=== PATIENT | female | born 1995 | race African-American/Black ===

== ENCOUNTER 2016-10-04 14:37 | Emergency (ER) | payer OTHER ==
--- NOTE | 2016-10-04 16:08 | PROVIDER DOCUMENTATION ---
HPI-Abdominal Pain/GI Problem - General Source: patient - History of Present Illness-ABD Nature of Presenting Problems: 21 year old female presents to the ER with complaint of N/V/D. States she ate chicken last night, took a two hour nap and work up with vomiting and diarrhea. Pt denies fever. Abdominal Pain Onset Location: reports: generalized abdomen Pain Radiation: reports: no radiation Onset/Duration: reports: last night Timing: reports: still present Associated Symptoms: reports: diarrhea, nausea, vomiting <Barbra Ayala - Last Filed: 10/04/16 16:04> - General Source: patient <Yobani Culver - Last Filed: 10/04/16 20:21> - General Chief Complaint: N/V/D Stated Complaint: THROWING UP Time Seen by Provider: 10/04/16 16:04 Allergies/Adverse Reactions: Patient Allergies Allergy/AdvReac Type Severity Reaction Status Date / Time latex Allergy RASH Verified 02/16/16 06:52 Home Medications: Home Medication List Medication Instructions Recorded Confirmed Last Taken Type Buspirone HCl [Buspar] 5 mg PO BID 04/23/16 04/23/16 Unknown History Dicyclomine HCl [Bentyl] 20 mg PO TID #30 tablet 04/23/16 Unknown Rx Ondansetron Odt [Zofran 8Mg Odt] 8 mg PO Q8H PRN PRN #20 tablet 04/23/16 Unknown Rx Sulfamethoxazole/Trimethoprim 1 each PO BID #10 tablet 04/23/16 Unknown Rx [Bactrim Ds Tablet] Levofloxacin [Levaquin] 500 mg PO DAILY #10 tablet 10/04/16 Unknown Rx Metronidazole [Flagyl] 500 mg PO TID #15 tablet 10/04/16 Unknown Rx Ondansetron [Zofran Odt] 4 mg PO 4XDAY PRN PRN #20 10/04/16 Unknown Rx tab.rapdis Review of Systems - Adult - REVIEW OF SYSTEMS - ADULT Constitutional: denies: chills, fever Eyes: reports: no symptoms reported Ears, Nose, Mouth & Throat: reports: no symptoms reported Cardiovascular: reports: no symptoms reported Respiratory: reports: no symptoms reported Gastrointestinal: reports: abdominal pain, diarrhea, nausea, vomiting Genitourinary: reports: no symptoms reported Musculoskeletal: reports: no symptoms reported Integumentary: reports: no symptoms reported Neurological: reports: no symptoms reported Psychiatric: reports: no symptoms reported Endocrine: reports: no symptoms reported Hematologic/Lymphatic: reports: no symptoms reported Allergic/Immunologic: reports: no symptoms reported All Other Systems: Reviewed and Negative <Barbra Ayala - Last Filed: 10/04/16 16:04> Past History - Adult - PAST MEDICAL HISTORY-ADULT Review of Records: reports: Nursing Assessment Review, Medications Reviewed Major Childhood Illnesses: reports: denies history Cardiovascular: reports: denies history Respiratory: reports: denies history Gastrointestinal: reports: denies history Obstetrical/Gynecological: reports: denies history Genitourinary: reports: denies history Musculoskeletal: reports: denies history Neurological: reports: denies history Endocrine/Immune: reports: denies history Other Conditions: reports: denies history - PRIOR SURGERIES/PROCEDURES Surgical/Procedure History: reports: none - IMMUNIZATION STATUS Childhood Immunizations: See Nurse Assessment Flu Vaccine: See Nurse Assessment - FAMILY HISTORY Family History: reviewed, not pertinent <Barbra Ayala - Last Filed: 10/04/16 16:04> Physical Exam-General - PHYSICAL EXAM-ADULT Initial Vital Signs Reviewed: Yes - CONSTITUTIONAL General Appearance: alert, no apparent distress - EYES Eyes: PERRL/EOMI, pink conjunctivae - HEAD, EARS, NOSE, MOUTH & THROAT HENMT: normocephalic/atraumatic, moist mucous membranes - NECK Neck: supple, normal inspection - RESPIRATORY Respiratory: lungs clear, normal breath sounds - CARDIOVASCULAR Cardiovascular: normal peripheral pulses, regular rate, rhythm - GASTROINTESTINAL (ABDOMEN) Abdominal Exam: normal bowel sounds, soft - MUSCULOSKELETAL Back Exam: no CVA tenderness, no vertebral tenderness Extremity: normal range of motion, normal gait - SKIN Integumentary: normal color, warm/dry - NEUROLOGIC Neurologic: grossly normal, no motor/sensory deficits - PSYCHIATRIC Psych/Mental Status: normal mood/affect, normal thought content, normal thought process, oriented x 3 <Barbra Ayala - Last Filed: 10/04/16 16:04> Progress - PLAN OF CARE/RESULTS Progress/Plan/Lab Results: Laboratory Tests 10/04/16 10/04/16 10/04/16 16:02 16:02 16:07 WBC 14.20 H RBC 4.61 Hgb 14.1 Hct 41.8 MCV 90.7 MCH 30.6 MCHC 33.7 RDW Std Deviation 14.8 H Plt Count 353 MPV 9.9 Immature Gran % (Auto) 0.2 Neut % (Auto) 84.6 H Lymph % (Auto) 10.2 L Toombs % (Auto) 4.9 Eos % (Auto) 0.0 Baso % (Auto) 0.1 Immature Gran # (Auto) 0.03 Neut # (Auto) 12.01 H Lymph # (Auto) 1.45 Toombs # (Auto) 0.69 H Eos # (Auto) 0.00 Baso # (Auto) 0.02 Segmented Neutrophils 78 H Lymphocytes 16 L Monocytes 6 Sodium 137 Potassium 3.8 Chloride 101 Carbon Dioxide 22 L Anion Gap 15 BUN 10 Creatinine 0.6 Estimated GFR/1.73 m2 > 60 BUN/Creatinine Ratio 17 Glucose 130 H Calculated Osmolality 275 Calcium 10.4 H Total Bilirubin 1.10 H AST 20 ALT 29 Alkaline Phosphatase 71 Total Protein 8.2 Albumin 5.5 H Globulin 3.0 Albumin/Globulin Ratio 2.0 Urine Source CLEAN CATCH Urine Color YELLOW Urine Clarity SLIGHTLY CLOUDY A Urine pH 6.5 Ur Specific Peterson 1.015 Urine Protein 1+(30 mg/dL) A Urine Ketones 3+(Large) A Urine Blood NEGATIVE Urine Nitrite NEGATIVE Urine Bilirubin NEGATIVE Urine Urobilinogen NORMAL Urine Microscopic RBC 10-20 A Urine WBC 2+ A Urine Microscopic WBC 10-20 A Ur Epithelial Cells >10 A Urine Bacteria 1+ Urine Glucose NEGATIVE Orders Category Date Time Status CT ABD/PELVIS W/ IV CONT ONLY [CT] Stat Exams 10/04/16 18:28 Ordered FLAT/UPRIGHT ABD/1 VIEW CHEST [RAD] Stat Exams 10/04/16 15:56 Draft CBC WITH DIFF [HEME] Stat Lab 10/04/16 16:02 Completed COMPREHENSIVE METABOLIC PANEL [CHEM] Stat Lab 10/04/16 16:[address] W/POSS RFLX CULT [URINALYSIS] Stat Lab 10/04/16 16:07 Completed URINE CULTURE [RM] Routine Lab 10/04/16 16:44 Ordered Promethazine [Phenergan] Med 10/04/16 16:10 Discontinued 12.5 mg IV NOW ONE Promethazine [Phenergan] Med 10/04/16 16:11 Discontinued 25 mg .ROUTE .STK-MED ONE Sodium Chloride 0.9% Med 10/04/16 16:10 Discontinued 10 ml INJ NOW ONE Vital Signs - 24 hr 10/04/16 10/04/16 14:41 17:05 Temperature 98.1 F 98.9 F Pulse Rate 84 65 Respiratory 18 18 Rate Blood Pressure 121/97 129/73 O2 Sat by Pulse 100 96 Oximetry - CT/MRI 1 CT Study: Abdomen CT Results: NO BOWEL OBSTRUCTION. MILD COLITIS <Yobani Culver - Last Filed: 10/04/16 20:21> Departure <Barbra Ayala - Last Filed: 10/04/16 16:04> - Departure Time of Disposition Order: 20:20 Certified Medical Emergency: Emergent <Palomo,Yobani - Last Filed: 10/04/16 20:21> - Departure DIAGNOSIS: Colitis UTI (urinary tract infection) Qualifiers: Urinary tract infection type: site unspecified Hematuria presence: with hematuria Qualified Code(s): N39.0 - Urinary tract infection, site not specified ; R31.9 - Hematuria, unspecified Disposition: HOME 01 Condition: Stable Additional Instructions: ED Follow Up Instructions: You have been treated by a care provider in the Emergency Department. These instructions are being provided to you so you can have an understanding of how to care for yourself upon discharge. Upon discharge from the Emergency Department, you are responsible for making arrangements for follow-up care by a physician of your choice. Take all prescribed medications as directed. Return to the Emergency Department immediately for any new or worsening symptoms. You may call the Physician Referral phone number at [phone] to obtain a list of Physicians who are taking new patients. Prescriptions: Metronidazole [Flagyl] 500 mg PO TID #15 tablet Levofloxacin [Levaquin] 500 mg PO DAILY #10 tablet Ondansetron [Zofran Odt] 4 mg PO 4XDAY PRN PRN #20 tab.rapdis PRN Reason: Vomiting Attestation - Scribe Verification/Attestation Scribe:: Barbra Ayala Acting as Scribe for:: Wilber Gaston Scribe documention review:: This chart was documented by a scribe and accurately reflects the service the provider performed and the decisions made by the provider. <Barbra Ayala - Last Filed: 10/04/16 16:04> - Scribe Verification/Attestation Scribe:: Yobani Culver Acting as Scribe for:: Maury Oviedo Scribe documention review:: This chart was documented by a scribe and accurately reflects the service the provider performed and the decisions made by the provider. <Yobani Culver - Last Filed: 10/04/16 20:21> Physician Attestation
[2016-10-04] MEDS ORDERED: SODIUM CHLORIDE 0.9% INJ ONE (16:10)
[2016-10-04] MEDS ORDERED: PHENERGAN IV ONE (16:10)
[2016-10-04] MEDS ORDERED: PHENERGAN ONE (16:11)
[2016-10-04 16:21] LABS: URINE SOURCE CLEAN CATCH
[2016-10-04 16:34] LABS: BASO% 0.1 % (0.0-0.8); HEMATOCRIT 41.8 % (37.0-47.0); HEMOGLOBIN 14.1 g/dL (12.0-16.0); IMM GRAN# 0.03 X1000 (0.0-0.04); IMM GRAN% 0.2 % (0.0-0.5); LYMPH# 1.45 X1000 (1.2-3.4); LYMPH% 10.2 % (20.5-51.1); MANUAL DIFF NEEDED? YES; MCH 30.6 PG (27-31); MCHC 33.7 g/dL (33-37); MCV 90.7 FL (81-99); MONO# 0.69 X1000 (0.11-0.59); MONO% 4.9 % (1.7-9.3); MPV 9.9 FL (7.4-10.4); NEUT% 84.6 % (42.2-75.2); PLT 353 X1000 (130-400); RBC 4.61 XMIL (4.2-5.4)
[2016-10-04 16:41] LABS: CLARITY SLIGHTLY CLOUDY (CLEAR); COLOR YELLOW; GLUCOSE URINE NEGATIVE (NEGATIVE)
[2016-10-04 16:42] LABS: AGAP 15; ALBUMIN 5.5 g/dL (3.5-5.0); ALKALINE PHOSPHATASE 71 U/L (32-104); BUN 10 mg/dL (8-22); CALCIUM 10.4 mg/dL (8.8-10.2); CHLORIDE 101 mmol/L (98-107); COSMO 275; GOT 20 U/L (10-30); GPT 29 U/L (10-36); POTASSIUM 3.8 mmol/L (3.5-5.1); SODIUM 137 mmol/L (136-145); TCO2 22 mmol/L (25-35); TOTAL PROTEIN 8.2 g/dL (6.3-8.3)
[2016-10-04 16:42] LABS: BILIRUBIN URINE NEGATIVE (NEGATIVE); BLOOD URINE NEGATIVE (NEGATIVE); LEUKOCYTES URINE 2+ (NEGATIVE); NITRITE URINE NEGATIVE (NEGATIVE); PH URINE 6.5; PROTEIN URINE 1+(30 mg/dL) mg/dL (NEGATIVE); SP GRAVITY URINE 1.015; UROBILINOGEN URINE NORMAL
[2016-10-04 16:43] LABS: URINE CULTURE PL NEEDED? YES; URINE EPITHELIAL CELLS >10 /HPF (<10)
[2016-10-04 17:00] LABS: LYMPHS 16 % (21-51); MONO 6 % (1-9)
[2016-10-04 17:06] VITALS: BP 129/73
--- NOTE | 2016-10-04 18:29 | Diag Imaging Result Document ---
PROCEDURE NAME: FLAT/UPRIGHT ABD/1 VIEW CHEST - 10/04/2016 ABDOMINAL SERIES: FINDINGS: Compared with 02/16/2016. The bowel gas pattern appears nonspecific and nonobstructive. There is no free air identified. There are small calcifications in the left true pelvis, which are stable and compatible with phleboliths. Upright chest shows normal heart size. The lungs appear clear. There is no pleural effusion or pneumothorax seen. There is mild S-shaped thoracolumbar scoliosis noted. IMPRESSION: 1. Nonspecific bowel gas pattern. 2. No evidence of acute cardiopulmonary disease.
[2016-10-04] MEDS ORDERED: NS 1,000 ML IV ONE (20:19)
[2016-10-04] MEDS ORDERED: ZOFRAN IV PRN (20:19)
[2016-10-04] MEDS ORDERED: ZOFRAN ONE (20:20)
[2016-10-04] MEDS ORDERED: NS 1,000 ML ONE (20:21)
--- NOTE | 2016-10-04 22:28 | Diag Imaging Result Document ---
PROCEDURE NAME: CT ABD/PELVIS W/ IV CONT ONLY - 10/04/2016 CT ABDOMEN AND PELVIS WITH INTRAVENOUS CONTRAST: TECHNIQUE: Dose reduction protocol. COMPARISON: 04/23/2016. FINDINGS: Normal spleen, pancreas, adrenal glands, and kidneys. No hydronephrosis. No focal hepatic abnormality. Questionable minimal thickening to the gallbladder. No calcified stones or adjacent inflammation. Normal aorta. The bowel loops are not dilated. The appendix is not identified. No inflammation about the cecum. Possible mild thickening to the distal colon. No free air. The urinary bladder is only mildly distended. There is a 2.1 cm left ovarian cyst. Trace fluid in the pelvis. IMPRESSION: 1. Mild colitis versus incomplete distention of the colon. No free air. No abscess. 2. There is a 2.1 cm left ovarian cyst with trace fluid in the pelvis. A preliminary report was given at 8:07 p.m.
== END 2016-10-04 21:05 | disposition home or self-care (01) ==
LOC: P.ED 14:37
DX: N39.0 Urinary tract infection, site not specified (principal); K52.9 Noninfective gastroenteritis and colitis, unspecified; N83.202 Unspecified ovarian cyst, left side; R11.2 Nausea with vomiting, unspecified; R19.7 Diarrhea, unspecified; R10.84 Generalized abdominal pain; Z79.899 Other long term (current) drug therapy
CPT/HCPCS: 74022; 74177; 80053; 81001; 85025; 87088; 96361; 96374; 96375; J2405; J2550; J7030; Q9967